=== PATIENT | male | born 1960 | race Caucasian/White ===

== ENCOUNTER 2018-02-16 16:37 | Emergency (ER) | payer OTHER ==
[~2018-02-16] VITALS: Ht 180.3 cm; Wt 86.2 kg
[2018-02-16] MEDS ORDERED: TDAP DIPH,PERTUSS,TET VAC/PF 0.5 ML DISP.SYRIN IM ONE ×2 (16:45→17:04)
[2018-02-16] MEDS ORDERED: HYDROCODONE/APAP 5-325MG TABLET PO ONE (16:45)
[2018-02-16] MEDS ORDERED: NEOMY/BACITRA/POLYMYXIN B OINT UD PACKET TP ONE ×2 (16:45→17:03)
[2018-02-16] MEDS ORDERED: LIDOCAINE HCL 1% 20 ML VIAL TP ONE (17:00)
[2018-02-16] MEDS ORDERED: HYDROCODONE/APAP 5-325MG TABLET ONE (17:03)
--- NOTE | 2018-02-16 17:12 | NUR ---
PT IS IN ROOM #2B. DR MARCIAL EVALUATED THE PT.
--- NOTE | 2018-02-16 18:14 | NUR ---
PT WAS D/C TO HOME. D/C INSTRUCTIONS GIVEN TO THE PT BY DR MARCIAL.
[2018-02-16 18:16] VITALS: BP 142/88
== END 2018-02-16 18:17 | disposition home or self-care (01) ==
LOC: ER 16:38
DX: S61.412A Laceration without foreign body of left hand, initial encounter (principal); Z59.0 Homelessness; Y04.0XXA Assault by unarmed brawl or fight, initial encounter; Y93.89 Activity, other specified; Y92.89 Other specified places as the place of occurrence of the external cause; Y99.8 Other external cause status
CPT/HCPCS: 12002; 29125; 73110; 73130; 90471; 90715; 99284; A4663; J3490